=== PATIENT | female | born 1975 | race Caucasian/White ===

== ENCOUNTER 2021-10-20 19:42 | Emergency (ER) | payer OTHER ==
[~2021-10-20] VITALS: Ht 170.2 cm; Wt 81.8 kg
[2021-10-20 19:48] VITALS: TEMP 97.2
[2021-10-20] MEDS ORDERED: VANTIN 200200 MG/TAB PO (20:13)
[2021-10-20 21:56] VITALS: BP 145/78; PULSE 76
== END 2021-10-20 21:56 | disposition home or self-care (01) ==
LOC: COL.ER 19:42
DX: S62.616A Displaced fracture of proximal phalanx of right little finger, initial encounter for closed fracture (principal); S61.031A Puncture wound without foreign body of right thumb without damage to nail, initial encounter; W54.0XXA Bitten by dog, initial encounter